=== PATIENT | male | born 1945 | race Caucasian/White ===

== ENCOUNTER → 2017-01-12 | Outpatient (CLI) | payer OTHER ==
[~2017-01-12] MED LIST: DILT-60 PO; LEVO75TA3 PO; MONT10TA4 PO; MULTTAB27 PO; OXYC-392 PO; TEST1GEL10 TOPICAL; VENTAER INH; ZOFR4TAB PO; ZOLP10TA3 PO
--- NOTE | 2017-01-13 11:20 | RADRPT ---
EXAM DATE/TIME: 01/13/2017 08:32 IR CONSULT: Patient is kindly referred for consideration of evaluation for hepatocellular carcinoma locoregional therapy. Patient reportedly has a history of hepatitis C and EtOH abuse and has completed antiviral t herapy in 2011. CT 01/03/2017 and MRI 01/05/2017 exams from [facility] are reviewed. These demonstr ate a large infiltrative mass in segment 8 and 6 of the liver with invasion of the right portal branc hes and a large nonocclusive tumor thrombus seen centrally in the right main portal vein. The main po rtal vein and left portal vein are patent. There is no evidence for significant extrahepatic involvem ent. This mass was previously biopsied with pathology demonstrating hepatocellular carcinoma. This is also consistent with the imaging findings. Mr. Mendez is a potential candidate for locoregional therapy. His performance status and liver function will be critical in developing an appropriate locoregional therapy option. Generally, Y90 embolizati on is the preferred first approach with patients who have portal vein invasion as it tends to be sign ificantly less embolic. Please note that patient has variant celiac anatomy. The left hepatic artery originates from the left gastric artery. There is complete replacement of the right hepatic artery from the SMA. Thank you for allowing interventional radiology to participate in the care of this patient. IMAGING STUDIES: ? ASSESSMENT: ? PLAN: ? TIME SPENT: Chele Griffin MD on January 13, 2017 at 10:38 Board Certified Radiologist. This report was verified electronically.
== END ==
LOC: HRAD 15:36
PROVIDERS: ATTEND Internal Medicine Hematology & Oncology
DX: C22.7 Other specified carcinomas of liver (principal)

== ENCOUNTER 2017-01-19 13:19 | Day surgery (SDC) | payer OTHER ==
[2017-01-19] MEDS ORDERED: MULTTAB27 PO (13:43)
[2017-01-19] MEDS ORDERED: MONT10TA4 PO (13:44)
[2017-01-19] MEDS ORDERED: LEVO75TA3 PO (13:44)
[2017-01-19] MEDS ORDERED: DILT-60 PO (13:45)
[2017-01-19] MEDS ORDERED: ZOLP10TA3 PO (13:45)
[2017-01-19] MEDS ORDERED: TEST1GEL10 TOPICAL (13:46)
[2017-01-19] MEDS ORDERED: VENTAER INH ×2 (13:47→13:48)
[2017-01-19] MEDS ORDERED: OXYC-392 PO (13:51)
[2017-01-19] MEDS ORDERED: ZOFR4TAB PO (13:51)
--- NOTE | 2017-01-19 16:18 | RADRPT ---
EXAM DATE/TIME: 01/19/2017 00:00 [facility] COMPARISON : INDICATIONS : consult for transarteriol chemo embolization OBJECTIVE: Temperature: 98.2 Heart Rate: 65 Blood Pressure: 152/90 Respiratory: 20 Oximetry: 95 PNEUMONIA VACCINE: HISTORY OF PRESENT ILLNESS: Mr. Kerr is a very pleasant 71-year-old male with a history of Hepatitis C and EtOH abuse was recentl y diagnosed with hepatocellular carcinoma. Patient completed antiviral therapy in 2011. CT and MRI ex amination performed in December demonstrated a large infiltrative mass in segments 6 and 8 of the liver w ith segmental right portal vein invasion and large nonocclusive tumor thrombus in the right main port al vein. This mass was biopsied with pathology demonstrating hepatocellular carcinoma. He currently h as an excellent functional status, ECOG 0. Review of recent labs demonstrate intact hepatic function (Tbili 0.6, Alb 4.0) with MELD-Na score of 10 PAST MEDICAL HISTORY : 1. htn 2. hep c 3. asthma 4. hypothiroidism PAST SURGICAL HISTORY : 1. turp 2. multiple hernia repairs SOCIAL HISTORY : Social alcohol use. Tobacco;former. ALLERGIES: 1. lisinopril MEDICATIONS: 1. mvi 1 tab q.d. 2. levothyroxine 75 mcg q.d. 3. montelutast 10 mg q.d. 4. dilitazem 120 mg q.d. 5. zolpridem 10 mg q.h.s. 6. [id number] cream q.d. 7. hydrocodone 5 mg prn 8. zofran 4 mg prn PHYSICAL EXAMINATION: CV: Regular rate and rhythm. Lungs: Clear to auscultation. Abdomen: Soft, nontender nondistended. IMAGING STUDIES: CT examination dated 01/03/2017 and MRI examination dated 01/05/[address] [facility] are reviewed. Infiltrative large mass in segments 6 and 8 of the liver with segmental right portal branch invasion and large nonocclusive thrombus centrally in the right main portal vein. The main portal vein and lef t portal vein are patent. No evidence for significant extra pathic involvement. ASSESSMENT: 71-year-old male with history of Hep C and EtOH abuse now with biopsy-proven large infiltrative hepat ocellular carcinoma in segments 6 and 8 of the liver with segmental portal vein involvement (main PV is patent). Patient has an excellent functional status, ECOG 0, and maintains normal hepatic function (Tbili 0.6, Alb 4.0) with MELD-Na score of 10. Therefore, he is an excellent Y90 locoregional therap y candidate since Y90 is significantly less embolic and tends to preserve hepatic vasculature for pot ential future MASOOD TACE. PLAN: Plan for Y90 mapping and lobar Y90 embolization pending insurance authorization. TIME SPENT: 30 minutes Chele Griffin MD on January 19, 2017 at 14:59 Board Certified Radiologist. This report was verified electronically.
== END 2017-01-19 14:30 | disposition home or self-care (01) ==
LOC: HROP 13:19 → HRIP 13:21 → HROP 14:30
PROVIDERS: ATTEND Internal Medicine Hematology & Oncology
DX: C22.0 Liver cell carcinoma (principal); I10 Essential (primary) hypertension; J45.909 Unspecified asthma, uncomplicated; E03.9 Hypothyroidism, unspecified; B19.20 Unspecified viral hepatitis C without hepatic coma; Z87.891 Personal history of nicotine dependence

== ENCOUNTER 2017-02-15 07:32 | Day surgery (SDC) | payer OTHER ==
[2017-02-15] VITALS (10 sets, daily range): BP systolic 150–195; BP diastolic 87–105; PULSE 61–68; RESP 16–20; TEMP 97.4–98; O2SAT 93–98
[~2017-02-15] VITALS: Ht 180.3 cm; Wt 87.0 kg
[2017-02-15] MEDS ORDERED: SODIUM CHLOR 0.9% 1000 ML INJ 1,000 ML IV SCH (08:15)
[2017-02-15] MEDS ORDERED: TRAM50TA PO (08:39)
[2017-02-15] MEDS ORDERED: MORP1TAB24 PO (08:39)
[2017-02-15] MEDS ORDERED: [UNRECOGNIZED DRUG - OTHER] (08:39)
[2017-02-15 08:52] LABS: AUTOMATED NEUTROPHIL # 3.9 TH/MM3 (1.8-7.7); BASOPHIL # 0.1 TH/MM3 (0-0.2); BASOPHIL % 1.2 % (0.0-2.0); EOSINOPHIL # 0.3 TH/MM3 (0-0.4); EOSINOPHIL % 5.7 % (0.0-4.0); HEMATOCRIT 43.8 % (39.0-51.0); HEMO FLAGS DIFF FINAL; MEAN CELL VOLUME 86.4 FL (80.0-100.0); MEAN CORPUSCULAR HEMOGLOBIN 29.5 PG (27.0-34.0); MEAN CORPUSCULAR HGB CONC 34.1 % (32.0-36.0); MONO % 12.3 % (0.0-8.0); NEUT % 64.8 % (16.0-70.0); PLATELET COUNT 262 TH/MM3 (150-450); RED BLOOD COUNT 5.07 MIL/MM3 (4.50-5.90); RED CELL DISTRIBUTION WIDTH 12.8 % (11.6-17.2); WHITE BLOOD COUNT 6.1 TH/MM3 (4.0-11.0)
[2017-02-15 09:02] LABS: APTT (PATIENT) 28.9 SEC (24.3-30.1); PROTHROMBIN TIME - PATIENT 11.4 SEC (9.8-11.6)
[2017-02-15 09:26] LABS: ANION GAP 9 MEQ/L (5-15); BICARBONATE 25.3 MEQ/L (21.0-32.0); BLOOD UREA NITROGEN 16 MG/DL (7-18); CHLORIDE 106 MEQ/L (98-107); GLOMERULAR FILTRATION RATE 56 ML/MIN (>89); SODIUM (NA) 140 MEQ/L (136-145)
[2017-02-15 09:35] LABS: ALT (GPT) 87 U/L (12-78); AST (GOT) 77 U/L (15-37)
[2017-02-15 09:37] LABS: ALKALINE PHOSPHATASE 157 U/L (45-117); TOTAL BILIRUBIN ADULT 1.1 MG/DL (0.2-1.0)
[2017-02-15] MEDS ORDERED: MIDAZOLAM HCL 5 MG/5 ML VIAL ONE (10:03)
[2017-02-15] MEDS ORDERED: fentaNYL CITRATE 250 MCG/5 ML AMP ONE (10:03)
[2017-02-15] MEDS ORDERED: ONDANSETRON HCL 4 MG/2 ML VIAL ONE (10:32)
[2017-02-15] MEDS ORDERED: VERAPAMIL HCL 5 MG/2 ML VIAL ONE (11:50)
[2017-02-15] MEDS ORDERED: HEPARIN SODIUM - IV 10,000 UNITS/10 ML VIAL ONE (11:50)
[2017-02-15] MEDS ORDERED: SODIUM CHLORIDE 0.9% INJ 10 ML ONE (11:51)
[2017-02-15] MEDS ORDERED: IOHEXOL 350 MG/ML 100 ML BTL (for RAD DIAG) OTHER ONE (12:34)
[2017-02-15] MEDS ORDERED: LORazepam 2 MG/ML VIAL ONE (12:43)
--- NOTE | 2017-02-15 14:55 | PD.RAD ---
Post Procedure Progress Note Pre Procedure Diagnosis: (1) HCC (hepatocellular carcinoma) Post Procedure Diagnosis: (1) HCC (hepatocellular carcinoma) Procedure Date: Feb 15, 2017 Supervising Radiologist: Chele Griffin Proceduralist/Assist: Michelle Robles, RT(R), Kay Zavala RT(R)() Anesthesia: Conscious Sedation Plan of Activity Patient to Unit: ROPU Patient Condition: Good Additional Comments: Y90 mapping. See PACS Report for procedural detail/treatment Chele Griffin MD Feb 15, 2017 14:55
--- NOTE | 2017-02-15 16:29 | RADRPT ---
EXAM DATE/TIME: 02/15/2017 11:44 COMPARISON: No previous studies available for comparison. INDICATIONS : Liver cell carcinoma. DOSE: 2.1 mCi Tc99m MAA Intraarterial IMAGING: SPECT/CT imaging with fusion was performed. RADIATION DOSE: 4.08 CTDIvol (mGy) MEDICAL HISTORY : Carcinoma, hepatocellular. Hepatitis C. SURGICAL HISTORY : Prostatectomy. Umbilical hernia repair. ENCOUNTER: Initial ACUITY: 1 day PAIN SCALE: 0/10 LOCATION: upper quadrant FINDINGS: Intra-arterial administration of technetium 99m MAA into replaced right hepatic artery arising from t he SMA and for performance of right mapping. There is diffuse uptake throughout the right lobe of the liver without evidence for extrahepatic activity. The lung shunt percent is calculated at 19.9% CONCLUSION: 1. No evidence for extrahepatic activity following injection of the right hepatic artery. 2. Lung shunt of 19.9%. Chele Griffin MD on February 15, 2017 at 15:05 Board Certified Radiologist. This report was verified electronically.
--- NOTE | 2017-02-18 11:27 | RADRPT ---
EXAM DATE/TIME: 02/15/2017 09:45 COMPARISON: No previous studies available for comparison. INDICATIONS : 71-year-old male with history of EtOH abuse and hepatitis C recently diagnosed with hepatocellular ca rcinoma. Patient completed chemotherapy in 2011. Imaging demonstrates large infiltrative mass in segm ent 6 and 8 of the liver with segmental right portal vein invasion and large nonocclusive tumor throm bus in the right main portal vein. ECOG 0, MELD-Na score of 10. Patient presents for yttrium-90 mappi ng. MEDICAL HISTORY : Prostate carcinoma Hep C Heavy alcohol consumption Heavy smoker in the past HTN Hypothyroidism COPD SURGICAL HISTORY : Hernia repair Prostate biopsy with transurethral resection of prostate carcinoma ENCOUNTER: Initial ACUITY: 1 month PAIN SCORE: 3/10 LOCATION: Back FLUORO TIME: 18.4 minutes IMAGE SERIES: ? ACCESS SITE: Left Radial artery SEDATION TIME: 90 minutes CONTRAST: 1.) 140 cc Omnipaque (iohexol) 350 MEDICATION(S): 1.) 5 mg midazolam (Versed) IV 2.) 250 mcg fentanyl (Sublimaze) IV 3.) 3,000 units Heparin IV 4.) 400 mcg Nitroglycerin IART 5.) 4 mg Verapamil IART 6.) 4 mg ondansetron (Zofran) IV DEVICE(S): 1.) Middle hepatic artery [id number] .018 Interlock embolic coil(s) PROCEDURES PERFORMED: 1. Ultrasound guided left radial artery access 2. Selective catheter placement in the celiac artery selective angiography 3. Subsequent catheter placement in the left gastric artery with subselective angiography 4. Subselective catheter placement and left hepatic artery arising from the left gastric artery with subselective angiography 5. Single coil embolization of middle hepatic artery 6. Selective catheterization and in the SMA was selected angiography 7. Subselective catheter placement in the right hepatic artery arising from the SMA with subselectiv e angiography 8. Intra-arterial administration of Technetium 99m-MAA in the replaced right hepatic artery 9. Administration of conscious sedation with real-time monitoring FINDINGS: Patient was placed supine in angiographic table. A patient passed about both first on the left side. Evaluation of the left radial artery demonstrated the artery to be patent. Single image was obtained and placed in PACS archive. Micropuncture needle was advanced into the left radial artery under direc t ultrasound guidance. This was subsequently exchanged for a short slim 5 Lithuanian sheath. 5 Lithuanian pos t catheter and Glidewire were advanced into the celiac artery. Angiography was performed. This confir med variant celiac anatomy with only a small branch supplying the liver arising from the common hepat ic artery. Catheter was then advanced into the common hepatic artery and angiography was repeated. Th is again confirmed a single middle hepatic artery with abnormal enhancement near the expected mass in segments 6 and 8. Therefore, decision was made to perform consolidative coil embolization. A negativ e microcatheter was advanced into the middle hepatic artery and angiography was performed. This again confirmed the findings. Next, the middle hepatic artery was embolized with a single 3 x 60 mm interl ock coil. No simple cyst angiography demonstrated well placed coil mass. Catheter was then reposition ed into the left gastric artery and angiography was performed. This confirmed the origin of the left hepatic artery from the left gastric artery. Catheter was advanced into the left hepatic artery and a ngiography was performed. This confirmed left hepatic artery without evidence for abnormal enhancemen t in the left lobe of the liver. Microcatheter was then removed. The angiographic catheter was reposi tioned in the SMA. SMA angiography confirmed replaced right hepatic artery arising from the SMA. Ther e is also extensive abnormal enhancement throughout the right lobe of the liver with early portal gerard ous shunting. Microcatheter was then positioned in the right hepatic artery and angiography was perfo rmed. This confined the findings. Therefore, a solution containing 2 mCi of technetium 99m MAA were s lowly injected into the replaced right hepatic artery for performance of shunting examination. Cathet ers were then removed. The radial artery sheath was removed and hemostasis obtained with a radial com pression device. CONCLUSION: 1. Variant celiac and SMA anatomy with origin of the left hepatic artery from the left gastric artery and replaced right hepatic artery from the SMA. 2. There is a middle hepatic artery arising from the common hepatic artery with questionable supply t o the infiltrative mass in segments 6 and 8. Therefore, consolidative coil embolization of the middle hepatic artery was performed. 3. Intra-arterial administration of Technetium 99m-MAA in the replaced right hepatic artery arising f rom the SMA. Chele Griffin MD on February 18, 2017 at 11:05 Board Certified Radiologist. This report was verified electronically.
== END 2017-02-15 16:20 | disposition home or self-care (01) ==
LOC: HROP 07:32 → HRIP 07:33 → HROP 16:20
PROVIDERS: ATTEND Internal Medicine
DX: C22.0 Liver cell carcinoma (principal); B19.20 Unspecified viral hepatitis C without hepatic coma; I10 Essential (primary) hypertension; J44.9 Chronic obstructive pulmonary disease, unspecified; E03.9 Hypothyroidism, unspecified; Z85.46 Personal history of malignant neoplasm of prostate; Z87.891 Personal history of nicotine dependence
CPT/HCPCS: 36245; 36247; 36248; 37242; 75726; 75774; 76937; 78205; 78399; 80053; 85025; 85610; 85730; 99152; 99153; A9540; C1769; C1887; C1894; J1644; J2060; J2250; J2405; J3010; Q9967

== ENCOUNTER 2017-03-01 07:14 | Observation (INO) | payer OTHER ==
[~2017-03-01] VITALS: Ht 171.4 cm; Wt 92.0 kg
[2017-03-01] VITALS (15 sets, daily range): BP systolic 149–189; BP diastolic 77–97; PULSE 65–86; RESP 14–18; TEMP 96.2–98.1; O2SAT 94–98
[~2017-03-01 07:14] MED LIST changes: +MORP1TAB24 PO; -OXYC-392 PO; +TRAM50TA PO; +[UNRECOGNIZED DRUG - OTHER]
[2017-03-01] MEDS ORDERED: SODIUM CHLOR 0.9% 1000 ML INJ 1,000 ML IV SCH ×3 (08:00→12:34)
[2017-03-01 08:11] LABS: AUTOMATED NEUTROPHIL # 4.1 TH/MM3 (1.8-7.7); BASOPHIL % 0.6 % (0.0-2.0); EOSINOPHIL # 0.4 TH/MM3 (0-0.4); EOSINOPHIL % 6.6 % (0.0-4.0); HEMATOCRIT 41.9 % (39.0-51.0); HEMO FLAGS DIFF FINAL; LYMPH % 17.4 % (9.0-44.0); LYMPHOCYTE # 1.1 TH/MM3 (1.0-4.8); MEAN CELL VOLUME 87.4 FL (80.0-100.0); MEAN CORPUSCULAR HEMOGLOBIN 29.2 PG (27.0-34.0); MEAN CORPUSCULAR HGB CONC 33.4 % (32.0-36.0); MONO % 13.2 % (0.0-8.0); NEUT % 62.2 % (16.0-70.0); PLATELET COUNT 176 TH/MM3 (150-450); RED CELL DISTRIBUTION WIDTH 13.4 % (11.6-17.2); WHITE BLOOD COUNT 6.6 TH/MM3 (4.0-11.0)
[2017-03-01 08:24] LABS: APTT (PATIENT) 26.4 SEC (24.3-30.1); PROTHROMBIN TIME - PATIENT 10.9 SEC (9.8-11.6)
[2017-03-01 08:36] LABS: ALKALINE PHOSPHATASE 155 U/L (45-117); ALT (GPT) 81 U/L (12-78); ANION GAP 9 MEQ/L (5-15); AST (GOT) 81 U/L (15-37); BICARBONATE 28.5 MEQ/L (21.0-32.0); BLOOD UREA NITROGEN 16 MG/DL (7-18); CHLORIDE 102 MEQ/L (98-107); GLOMERULAR FILTRATION RATE 41 ML/MIN (>89); SODIUM (NA) 139 MEQ/L (136-145); TOTAL BILIRUBIN ADULT 0.8 MG/DL (0.2-1.0)
[2017-03-01 08:37] LABS: POTASSIUM 4.7 MEQ/L (3.5-5.1)
[2017-03-01] MEDS ORDERED: IOHEXOL 350 MG/ML 10 ML VIAL (for RAD DIAG) IV ONE (08:48)
--- NOTE | 2017-03-01 09:23 | RADRPT ---
EXAM DATE/TIME: 03/01/2017 08:41 [facility] COMPARISON: Comparison to CT exam from [facility] 01/11/2017 INDICATIONS : Tumor, Y90 IV CONTRAST: 71 cc Omnipaque 350 (iohexol) IV ORAL CONTRAST: No oral contrast ingested. RADIATION DOSE: 11.33 CTDIvol (mGy) MEDICAL HISTORY : Hypertension. Chronic obstructive pulmonary disease. Hepatitis C.Liver cancer SURGICAL HISTORY : Hernia repair ENCOUNTER: Initial ACUITY: 1 day PAIN SCALE: 0/10 LOCATION: Abdomen TECHNIQUE: Volumetric scanning of the abdomen was performed. Using automated exposure control and adjustment of the mA and/or kV according to patient size, radiation dose was kept as low as reasonably achievable to obtain optimal diagnostic quality images. DICOM format image data is available electronically for review and comparison. FINDINGS: LOWER LUNGS: The visualized lower lungs are clear. LIVER: There has been mild interval progression of diffuse infiltrative mass involving segments 7, 6 and 5 w ith metastatic foci to segments 8 and new metastatic foci to segments 2 and 4. Continued invasion of the posterior right portal vein branches. Remaining portal vein branches and central main portal vein are patent. No significant pleural adenopathy. SPLEEN: Normal size without lesion. PANCREAS: Within normal limits. KIDNEYS: Normal in size and shape. There is no mass, stone, or hydronephrosis. ADRENAL GLANDS: Within normal limits. AORTA/RETROPERITONEAL: There is no aneurysm or lymphadenopathy. BOWEL/MESENTERY: The stomach and visualized small and large bowel demonstrate no abnormality. ABDOMINAL WALL: Prior abdominal wall hernia repair. MUSCULOSKELETAL: Within normal limits for patient age. CONCLUSION: 1. Interval progression of infiltrative hepatocellular carcinoma with now bilobar involvement, as abo ve. Stable tumor thrombus involving the posterior right portal vein branches. No evidence for extrahe patic disease. Chele Griffin MD on March 01, 2017 at 9:11 Board Certified Radiologist. This report was verified electronically.
[2017-03-01] MEDS ORDERED: MIDAZOLAM HCL 2 MG/2 ML VIAL ONE ×2 (09:32→10:33)
[2017-03-01] MEDS ORDERED: fentaNYL CITRATE 250 MCG/5 ML AMP ONE (09:33)
[2017-03-01] MEDS ORDERED: ceFAZolin 2 GM PREMIX 50 ML ONE (09:37)
[2017-03-01] MEDS ORDERED: ONDANSETRON HCL 4 MG/2 ML VIAL ONE ×2 (09:37→14:54)
[2017-03-01] MEDS ORDERED: VERAPAMIL HCL 5 MG/2 ML VIAL ONE ×2 (10:20→10:24)
[2017-03-01] MEDS ORDERED: HEPARIN SODIUM - IV 10,000 UNITS/10 ML VIAL ONE (10:33)
[2017-03-01] MEDS ORDERED: NITROGLYCERIN 1000 MCG/5 ML VIAL ONE (11:00)
--- NOTE | 2017-03-01 11:08 | HHI.HP ---
[facility] Service [facility] Primary Care Physician Rodney Galvan M.D. Admission Diagnosis Diagnoses: (1) HCC (hepatocellular carcinoma) Diagnosis: Principal Chief Complaint: Belly pain and liver cancer Travel History International Travel<30 Days: No Contact w/Intl Traveler <30 Da: No Traveled to Known Affected Are: No History of Present Illness 71-year-old white male being directly admitted from radiology for hepatocellular carcinoma, post Y 90 embolization of the right Hepatic arteries ordered by his oncologist Dr. Soto. Patient reports having diagnosis of hepatocellular carcinoma for the past 4-5 months, says that he has a regular Dr. 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 He reports having chronic abdominal pain due to his liver mass and takes chronic opiates. He ends up taking Zofran as well for chronic nausea. He reports having intermittent fevers, chills, and night sweats from time to time. He reports having constipation secondary due to his opiates, has to take laxatives. His most recent CT scan today now showed that he had by lobar involvement of his liver. The patient denies ever being told that he had any metastases anywhere else in his body. He underwent the procedure well today with no complications per radiology. The patient reports having an appetite and wanting to eat. The patient cannot remember the exact reasons for his remaining home medications, notably diltiazem and what appears to be COPD meds of Ventolin and montelukast. Last Impressions Liver Scan Nuclear Medicine 03/01/17 0903 Signed Impressions: Service Date/Time: Wednesday, March 01, 2017 12:22 - CONCLUSION: 1. Appropriate expected activity in the right hepatic lobe, No significant extra hepatic activity. Chele Griffin MD Abdomen CT 03/01/17 0000 Signed Impressions: Service Date/Time: Wednesday, March 01, 2017 08:41 - CONCLUSION: 1. Interval progression of infiltrative hepatocellular carcinoma with now bilobar involvement, as above. Stable tumor thrombus involving the posterior right portal vein branches. No evidence for extrahepatic disease. Chele Griffin MD Review of Systems Except as stated in HPI: all other systems reviewed are Neg Past Family Social History Past Medical History Hepatitis C, liver carcinoma, prostate carcinoma, hypertension, COPD, hypothyroidism Past Surgical History Hernia repair, liver biopsy, prostate biopsy, TURP Reported Medications Reported Meds & Active Scripts Active Reported [nexa] Tramadol (Tramadol HCl) 50 Mg Tab 50 Mg PO Q8H PRN Morphine ER (Morphine Sulfate) 15 Mg Tab 15 Mg PO BID Zofran (Ondansetron HCl) 4 Mg Tab 4 Mg PO Q8HR PRN Ventolin Hfa 18 GM Inh (Albuterol Sulfate) 90 Mcg/Act Aer 2 Puff INH Q4H PRN Testosterone Topical (Testosterone) 10 Mg/0.5 Gm Gel 10 Mg TOPICAL DAILY 10 mg/actuation Zolpidem (Zolpidem Tartrate) 10 Mg Tab 10 Mg PO HS PRN Diltiazem CD 24 HR 120 Mg Caper 120 Mg PO DAILY Montelukast (Montelukast Sodium) 10 Mg Tab 10 Mg PO HS Levothyroxine (Levothyroxine Sodium) 75 Mcg Tab 75 Mcg PO DAILY Multi-Day Vitamins (Multiple Vitamin) 1 Tab Tab 1 Tab PO DAILY Allergies: Coded Allergies: Lisinopril (Verified Allergy, Severe, swelling, 03/01/17) Family History Hypertension Social History 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 Denies any current tobacco use, says he does have a greater than 40 year tobacco use history. Also reports having a heavy drinking history that ended 8-9 years ago. Physical Exam Vital Signs Vital Signs Date Time Temp Pulse Resp B/P Pulse Ox O2 Delivery O2 Flow Rate FiO2 03/01/17 08:09 94 Room Air 03/01/17 07:29 98.0 86 18 149/79 94 Physical Exam VS: Reviewed, oxygenating well on room air, afebrile, normotensive GENERAL: Elderly white male, well-nourished, no acute distress SKIN: Warm and dry. Left hand with arterial insertion site intact, no bleeding or bruising noted. EYES: Pupils equal and round. No scleral icterus. No injection or drainage. ENT: No nasal bleeding or discharge. Mucous membranes pink and moist. CARDIOVASCULAR: Regular rate and rhythm. no murmurs RESPIRATORY: No accessory muscle use. Clear to auscultation. Breath sounds equal bilaterally. GASTROINTESTINAL: Abdomen soft, mild to moderately distended diffusely, mild diffuse tenderness to palpation, no focal masses palpated MUSCULOSKELETAL: Extremities without clubbing, cyanosis, or edema. No obvious deformities. grossly intact ROM with 5/5 strength in upper and lower extremities proximally NEUROLOGICAL: Awake and alert. No facial droop nor slurred speech noted. PSYCHIATRIC: Appropriate mood and affect; insight and judgment normal. Laboratory Laboratory Tests Test 03/01/17 07:45 White Blood Count 6.6 Red Blood Count 4.80 Hemoglobin 14.0 Hematocrit 41.9 Mean Corpuscular Volume 87.4 Mean Corpuscular Hemoglobin 29.2 Mean Corpuscular Hemoglobin 33.4 Concent Red Cell Distribution Width 13.4 Platelet Count 176 Mean Platelet Volume 8.3 Neutrophils (%) (Auto) 62.2 Lymphocytes (%) (Auto) 17.4 Monocytes (%) (Auto) 13.2 Eosinophils (%) (Auto) 6.6 Basophils (%) (Auto) 0.6 Neutrophils # (Auto) 4.1 Lymphocytes # (Auto) 1.1 Monocytes # (Auto) 0.9 Eosinophils # (Auto) 0.4 Basophils # (Auto) 0.0 CBC Comment DIFF FINAL Differential Comment Prothrombin Time 10.9 Prothromb Time International 1.0 Ratio Activated Partial 26.4 Thromboplast Time Sodium Level 139 Potassium Level 4.7 Chloride Level 102 Carbon Dioxide Level 28.5 Anion Gap 9 Blood Urea Nitrogen 16 Creatinine 1.67 Estimat Glomerular Filtration 41 Rate Random Glucose 84 Calcium Level 9.3 Total Bilirubin 0.8 Aspartate Amino Transf 81 (AST/SGOT) Alanine Aminotransferase 81 (ALT/SGPT) Alkaline Phosphatase 155 Total Protein 7.9 Albumin 3.8 Result Diagram: 03/01/17 0745 03/01/17 0745 Imaging Last Impressions Liver Scan Nuclear Medicine 03/01/17 0903 Signed Impressions: Service Date/Time: Wednesday, March 01, 2017 12:22 - CONCLUSION: 1. Appropriate expected activity in the right hepatic lobe, No significant extra hepatic activity. Chele Griffin MD Abdomen CT 03/01/17 0000 Signed Impressions: Service Date/Time: Wednesday, March 01, 2017 08:41 - CONCLUSION: 1. Interval progression of infiltrative hepatocellular carcinoma with now bilobar involvement, as above. Stable tumor thrombus involving the posterior right portal vein branches. No evidence for extrahepatic disease. Chele Griffin MD Assessment and Plan Problem List: (1) HCC (hepatocellular carcinoma) ICD Code: C22.0 Status: Acute Assessment and Plan 71-year-old white male directly admitted from radiology for Hepatocellular carcinoma Hepatocellular carcinoma now w/ bilobar involvement per imaging - post Y-90 hepatic artery embolization. No known metastases. Clinically stable. Received contrast, will administer fluids for flush out and daily Protonix to minimize risk for radiation gastritis. CMP in AM. If remains clinically stable, anticipate discharge tomorrow. Has reliable outpatient oncology follow-up w/ Dr. Soto. Continue home Zofran. Chronic abdominal pain - secondary to above, continue home pain medications, will start MiraLAX, Colace and peripheral opiate antagonist. Acute renal insufficiency - currently GFR 41. Could very well be chronic but will be elucidated by tomorrow morning. IVFs as above. insomnia - home zolpidem Hypothyroidism - continue Synthroid COPD - continue home Ventolin and montelukast testosterone deficiency - post-TURP per patient. Will continue home dose. Code Status full code Discussed Condition With patient Physician Certification 2 Midnight Certification Type: Continued Stay Order for Inpatient Services The services are ordered in accordance with Medicare regulations or non- Medicare payer requirements, as applicable. In the case of services not specified as inpatient-only, they are appropriately provided as inpatient services in accordance with the 2-midnight benchmark. Estimated LOS (days): 1 1-2 days is the estimated time the patient will need to remain in the hospital, assuming treatment plan goals are met and no additional complications. Post-Hospital Plan: Home Nadeem Mchugh MD Mar 01, 2017 11:08
--- NOTE | 2017-03-01 12:40 | PD.RAD ---
Post Procedure Progress Note Pre Procedure Diagnosis: (1) HCC (hepatocellular carcinoma) Post Procedure Diagnosis: (1) HCC (hepatocellular carcinoma) Procedure Date: Mar 01, 2017 Supervising Radiologist: Chele Griffin Proceduralist/Assist: Marilee Sullivan, RT(R)(), Matilda Roger RT(R)() Anesthesia: Conscious Sedation Plan of Activity Patient to Unit: ROPU Patient Condition: Good Additional Comments: Y90 embolization of the right Hepatic arteries. 91% of dose delivered. See PACS Report for procedural detail/treatment Chele Griffin MD Mar 01, 2017 12:40
[2017-03-01] MEDS ORDERED: HYDROmorphone HCL PF 1 MG/ML VIAL IV PUSH PRN (12:45)
[2017-03-01] MEDS ORDERED: IOHEXOL 350 MG/ML 50 ML BTL (for RAD DIAG) OTHER ONE (13:19)
[2017-03-01] MEDS ORDERED: ALBUTEROL SULFATE 90 MCG/ACT HFA 8 GM INHALER INH PRN (14:00)
[2017-03-01] MEDS ORDERED: ONDANSETRON ODT 4 MG TAB PO PRN (14:00)
--- NOTE | 2017-03-01 14:20 | RADRPT ---
EXAM DATE/TIME: 03/01/2017 12:22 [facility] COMPARISON: No previous studies available for comparison. PRIOR BONE SCANS: No correlative bone scan available for comparison. INDICATIONS : Liver carcinoma. DOSE: 44.6 mCi Yttrium-90 Intraarterial MEDICAL HISTORY : Hepatitis C. Metastatic, liver. SURGICAL HISTORY : Umbilical hernia repair. Prostatectomy. ENCOUNTER: Initial ACUITY: 1 day PAIN SCALE: 0/10 LOCATION: upper quadrant COMPARISON: No previous studies obtainable for comparison. FINDINGS: Activity is confined to the right lobe of the liver. No significant extrahepatic activity is demonstr ated. CONCLUSION: 1. Appropriate expected activity in the right hepatic lobe, No significant extra hepatic activity. Chele Griffin MD on March 01, 2017 at 14:17 Board Certified Radiologist. This report was verified electronically.
[2017-03-01] MEDS ORDERED: traMADol HCL 50 MG TAB PO PRN (15:15)
[2017-03-01] MEDS ORDERED: LABETALOL HCL 100 MG/20 ML VIAL ONE (17:13)
[2017-03-01] MEDS ORDERED: hydrALAZINE HCL 25 MG TAB PO PRN (17:30)
[2017-03-01] MEDS ORDERED: LABETALOL HCL 100 MG/20 ML VIAL IV ONE (17:30)
[2017-03-01] MEDS ORDERED: hydrALAZINE HCL 10 MG TAB PO PRN (18:00)
[2017-03-01] MEDS: METHYLNALTREXONE BROMIDE 12 MG/0.6 ML VIAL SQ SCH (19:55)
[2017-03-01] MEDS: POLYETHYLENE GLYCOL 17 GM PKG PO SCH (19:56)
[2017-03-01] MEDS: MONTELUKAST SODIUM 10 MG TAB PO SCH (20:15)
[2017-03-01] MEDS: ZOLPIDEM TARTRATE 10 MG TAB PO PRN (20:15)
[2017-03-01] MEDS: SODIUM CHLORIDE 0.9% FLUSH 10 ML FLUSH IV FLUSH SCH (20:19)
[2017-03-01] MEDS: SODIUM CHLOR 0.9% 1000 ML INJ 1,000 ML IV SCH (20:20)
[2017-03-01] MEDS: DOCUSATE SODIUM 100 MG CAP PO SCH (20:21)
[2017-03-01] MEDS: MORPHINE SULFATE 15 MG CONTROLLED RELEASE TAB PO SCH (21:00)
[2017-03-02] VITALS (8 sets, daily range): BP systolic 134–214; BP diastolic 76–106; PULSE 64–93; RESP 16–20; TEMP 96.4–98.2; O2SAT 93–98
[2017-03-02] MEDS: SODIUM CHLOR 0.9% 1000 ML INJ 1,000 ML IV SCH ×2 (05:35→18:55)
[2017-03-02] MEDS: LEVOTHYROXINE SODIUM 75 MCG TAB PO SCH (07:30)
[2017-03-02] MEDS: POLYETHYLENE GLYCOL 17 GM PKG PO SCH (08:49)
[2017-03-02] MEDS: DOCUSATE SODIUM 100 MG CAP PO SCH ×2 (08:56→20:16)
[2017-03-02] MEDS: PANTOPRAZOLE SOD 40 MG DELAYED RELEASE TAB PO SCH (08:56)
[2017-03-02] MEDS: MULTIVITAMIN TAB PO SCH (08:56)
[2017-03-02] MEDS: DILTIAZEM-CD 120 MG CAP ER PO SCH (08:56)
[2017-03-02] MEDS: METHYLNALTREXONE BROMIDE 12 MG/0.6 ML VIAL SQ SCH (09:00)
[2017-03-02] MEDS: MORPHINE SULFATE 15 MG CONTROLLED RELEASE TAB PO SCH ×2 (09:00→21:15)
[2017-03-02] MEDS ORDERED: TESTOSTERONE 10 MG TOPICAL SCH (09:00)
[2017-03-02] MEDS: SODIUM CHLORIDE 0.9% FLUSH 10 ML FLUSH IV FLUSH SCH ×2 (09:01→21:16)
[2017-03-02 09:16] LABS: ALKALINE PHOSPHATASE 136 U/L (45-117); ALT (GPT) 78 U/L (12-78); ANION GAP 10 MEQ/L (5-15); AST (GOT) 82 U/L (15-37); BICARBONATE 24.3 MEQ/L (21.0-32.0); BLOOD UREA NITROGEN 9 MG/DL (7-18); CHLORIDE 102 MEQ/L (98-107); GLOMERULAR FILTRATION RATE 73 ML/MIN (>89); POTASSIUM 3.9 MEQ/L (3.5-5.1); SODIUM (NA) 136 MEQ/L (136-145); TOTAL BILIRUBIN ADULT 1.4 MG/DL (0.2-1.0)
[2017-03-02] MEDS ORDERED: cloNIDine HCL 0.1 MG TAB PO ONE (09:30)
[2017-03-02] MEDS: CARVEDILOL 6.25 MG TAB PO SCH ×2 (11:07→21:15)
[2017-03-02] MEDS ORDERED: PROMETHAZINE INJ 25 MG/ML VIAL IM ONE (12:45)
[2017-03-02] MEDS ORDERED: ENALAPRILAT 1.25 MG/ML VIAL IV PUSH PRN (13:00)
--- NOTE | 2017-03-02 13:23 | HHI.PR ---
Subjective Remarks d/w nursing. pt's BP has been elevated substantially. Objective Vital Signs Date Time Temp Pulse Resp B/P Pulse Ox O2 Delivery O2 Flow Rate FiO2 03/02/17 12:14 96.4 74 20 210/98 98 03/02/17 12:00 97.0 80 18 214/101 96 192/98 03/02/17 10:00 18 03/02/17 08:00 98.2 80 18 197/106 96 03/02/17 05:00 98.2 93 16 134/88 94 03/02/17 00:00 98.0 78 16 152/81 97 03/01/17 20:15 Room Air 03/01/17 20:00 96.2 79 16 162/82 98 03/01/17 18:30 75 178/78 98 03/01/17 18:00 74 14 182/88 98 03/01/17 17:30 66 16 183/91 96 03/01/17 17:00 68 16 185/89 96 03/01/17 16:30 68 16 181/91 96 03/01/17 15:45 68 16 185/88 96 03/01/17 15:15 68 16 160/77 96 03/01/17 15:00 66 16 183/91 96 03/01/17 14:45 68 16 183/93 96 03/01/17 14:30 66 16 169/89 96 03/01/17 14:15 70 16 189/97 96 03/01/17 14:00 65 16 186/87 95 03/01/17 13:45 98.1 65 16 169/84 95 I/O 03/01/17 03/01/17 03/01/17 03/02/17 03/02/17 03/02/17 06:59 14:59 22:59 06:59 14:59 22:59 Intake Total 900 ml Output Total 700 ml 1350 ml 800 ml Balance -700 ml -1350 ml 100 ml Intake Oral 120 ml IV Total 780 ml Output Urine Total 700 ml 1350 ml 800 ml Result Diagram: 03/01/17 0745 03/02/17 0758 Imaging Last Impressions Liver Scan Nuclear Medicine 03/01/17 0903 Signed Impressions: Service Date/Time: Wednesday, March 01, 2017 12:22 - CONCLUSION: 1. Appropriate expected activity in the right hepatic lobe, No significant extra hepatic activity. Chele Bozorgmanesh, MD Abdomen CT 03/01/17 0000 Signed Impressions: Service Date/Time: Wednesday, March 01, 2017 08:41 - CONCLUSION: 1. Interval progression of infiltrative hepatocellular carcinoma with now bilobar involvement, as above. Stable tumor thrombus involving the posterior right portal vein branches. No evidence for extrahepatic disease. Chele Griffin MD Other Results Laboratory Tests Test 03/02/17 07:58 Sodium Level 136 MEQ/L (136-145) Potassium Level 3.9 MEQ/L (3.5-5.1) Chloride Level 102 MEQ/L (98-107) Carbon Dioxide Level 24.3 MEQ/L (21.0-32.0) Anion Gap 10 MEQ/L (5-15) Blood Urea Nitrogen 9 MG/DL (7-18) Creatinine 1.01 MG/DL (0.60-1.30) Estimat Glomerular Filtration 73 ML/MIN (>89) Rate Random Glucose 101 MG/DL (74-106) Calcium Level 9.1 MG/DL (8.5-10.1) Total Bilirubin 1.4 MG/DL (0.2-1.0) Aspartate Amino Transf 82 U/L (15-37) (AST/SGOT) Alanine Aminotransferase 78 U/L (12-78) (ALT/SGPT) Alkaline Phosphatase 136 U/L (45-117) Total Protein 7.0 GM/DL (6.4-8.2) Albumin 3.3 GM/DL (3.4-5.0) Objective Remarks GENERAL: Patient appears to be mild to moderate distress secondary to the pain and recent vomiting EYES: No scleral icterus. No injection or drainage. CARDIOVASCULAR: Regular rate and rhythm without murmurs, gallops, or rubs. RESPIRATORY: Breath sounds equal bilaterally. No accessory muscle use. GASTROINTESTINAL: Abdomen soft, mild diffuse abdominal distention, mild to moderate tenderness to palpation diffusely MUSCULOSKELETAL: No cyanosis, or edema. A/P Problem List: (1) HCC (hepatocellular carcinoma) ICD Code: C22.0 (2) Intractable nausea and vomiting ICD Code: R11.2 (3) Severe hypertension ICD Code: I10 Assessment and Plan 71-year-old white male who was admitted for hepatocellular carcinoma, requiring treatment with Y 90 embolization. Hepatocellular carcinoma - by lobar infiltration along with portal vein invasion , oncologist and Dr. Magaña. Tolerated procedure well yesterday. Nausea/vomiting - worsened compared to baseline, not responding to home Zofran, adding on Phenergan. Patient is not hypotensive so I do not suspect any intra- abdominal bleeding is occurring. CMP to be done tomorrow morning to monitor likely chronic transaminitis. Continue IV fluids and by mouth diet as tolerated. Hypertensive urgency - mild improvement with labetalol given yesterday, still refractory to hydralazine, if remains elevated by next check will consider transferring to alternative floor where IV antihypertensives can be pushed Renal insufficiency - likely was acute in nature as it responded well to fluids. Discussed case with interventional radiology, patient's overall condition is requiring for him to stay overnight mainly with his intractable nausea vomiting and his severe hypertension. Nadeem Mchugh MD Mar 02, 2017 13:23
[2017-03-02] MEDS ORDERED: PROMETHAZINE INJ 25 MG/ML VIAL IM PRN (19:30)
[2017-03-02] MEDS: ZOLPIDEM TARTRATE 10 MG TAB PO PRN (21:14)
[2017-03-02] MEDS: MONTELUKAST SODIUM 10 MG TAB PO SCH (21:14)
[2017-03-02] MEDS: LOSARTAN 25 MG TAB PO SCH (21:20)
[2017-03-03 01:04] VITALS: BP 132/86; PULSE 74; RESP 18; TEMP 98; O2SAT 96
[2017-03-03 04:46] VITALS: BP 160/93; PULSE 69; RESP 18; TEMP 98.1; O2SAT 95
[2017-03-03] MEDS: LEVOTHYROXINE SODIUM 75 MCG TAB PO SCH (06:43)
[2017-03-03 08:00] VITALS: BP 116/69; PULSE 71; RESP 18; TEMP 96.3; O2SAT 96
[2017-03-03] MEDS ORDERED: PROMETHAZINE HCL 25 MG TAB PO PRN (08:45)
[2017-03-03] MEDS: SODIUM CHLORIDE 0.9% FLUSH 10 ML FLUSH IV FLUSH SCH (09:00)
[2017-03-03] MEDS: DOCUSATE SODIUM 100 MG CAP PO SCH (09:00)
[2017-03-03] MEDS: POLYETHYLENE GLYCOL 17 GM PKG PO SCH (09:00)
[2017-03-03] MEDS: PANTOPRAZOLE SOD 40 MG DELAYED RELEASE TAB PO SCH (09:00)
[2017-03-03] MEDS: METHYLNALTREXONE BROMIDE 12 MG/0.6 ML VIAL SQ SCH (09:00)
[2017-03-03] MEDS: DILTIAZEM-CD 120 MG CAP ER PO SCH (09:25)
[2017-03-03] MEDS: MULTIVITAMIN TAB PO SCH (09:26)
[2017-03-03] MEDS: MORPHINE SULFATE 15 MG CONTROLLED RELEASE TAB PO SCH (09:26)
[2017-03-03] MEDS: LOSARTAN 25 MG TAB PO SCH (09:26)
[2017-03-03] MEDS: CARVEDILOL 6.25 MG TAB PO SCH (09:26)
[2017-03-03 12:00] VITALS: BP 139/74; PULSE 79; RESP 18; TEMP 96.7; O2SAT 97
[2017-03-03 14:24] LABS: BASOPHIL % 0.4 % (0.0-2.0); EOSINOPHIL # 0.6 TH/MM3 (0-0.4); EOSINOPHIL % 9.2 % (0.0-4.0); HEMATOCRIT 41.3 % (39.0-51.0); HEMO FLAGS DIFF FINAL; LYMPH % 12.1 % (9.0-44.0); LYMPHOCYTE # 0.7 TH/MM3 (1.0-4.8); MEAN CELL VOLUME 86.3 FL (80.0-100.0); MEAN CORPUSCULAR HEMOGLOBIN 29.7 PG (27.0-34.0); MEAN CORPUSCULAR HGB CONC 34.4 % (32.0-36.0); MONO % 12.5 % (0.0-8.0); NEUT % 65.8 % (16.0-70.0); PLATELET COUNT 174 TH/MM3 (150-450); RED BLOOD COUNT 4.79 MIL/MM3 (4.50-5.90); RED CELL DISTRIBUTION WIDTH 13.6 % (11.6-17.2); WHITE BLOOD COUNT 6.1 TH/MM3 (4.0-11.0)
--- NOTE | 2017-03-03 14:48 | HHI.DCPOC ---
Discharge Care Plan Additional Problems nausea and vomiting, liver cancer, elevated blood pressure Goals to Promote Your Health * To prevent worsening of your condition and complications * To maintain your health at the optimal level Directions to Meet Your Goals Take your medications as prescribed Follow your dietary instruction Follow activity as directed Keep your appointments as scheduled Take your immunizations and boosters as scheduled If your symptoms worsen call your PCP, if no PCP go to Urgent Care Center or Emergency Room Smoking is Dangerous to Your Health. Avoid second hand smoke Call the 24-hour hour crisis hotline for domestic abuse at Nadeem Mchugh MD Mar 03, 2017 14:48
[2017-03-03] MEDS ORDERED: CARV6.25 PO (14:50)
[2017-03-03] MEDS ORDERED: PROM25TA10 PO (14:50)
[2017-03-03] MEDS ORDERED: PANT40TA3 PO (14:50)
[2017-03-03 14:56] LABS: ALT (GPT) 75 U/L (12-78); ANION GAP 12 MEQ/L (5-15); AST (GOT) 67 U/L (15-37); BICARBONATE 23.1 MEQ/L (21.0-32.0); BLOOD UREA NITROGEN 12 MG/DL (7-18); CHLORIDE 104 MEQ/L (98-107); GLOMERULAR FILTRATION RATE 47 ML/MIN (>89); POTASSIUM 3.9 MEQ/L (3.5-5.1); SODIUM (NA) 139 MEQ/L (136-145)
[2017-03-03 14:58] LABS: ALKALINE PHOSPHATASE 139 U/L (45-117); TOTAL BILIRUBIN ADULT 0.9 MG/DL (0.2-1.0)
--- NOTE | 2017-03-03 18:33 | HHI.DS ---
Discharge Summary Admission Date Mar 01, 2017 at 19:30 Discharge Date: Mar 03, 2017 Admitting Diagnosis Hepatocellular carcinoma (1) HCC (hepatocellular carcinoma) ICD Code: C22.0 Diagnosis: Principal Procedures Y-90 embolization of hepatic artery Brief History - From Admission 71-year-old white male being directly admitted from radiology for hepatocellular carcinoma, post Y 90 embolization of the right Hepatic arteries ordered by his oncologist Dr. Soto. Patient reports having diagnosis of hepatocellular carcinoma for the past 4-5 months, says that he has a regular Dr. lupe Tristan but also has a unit secy and a oncologist the names of who he cannot remember. He reports having chronic abdominal pain due to his liver mass and takes chronic opiates. He ends up taking Zofran as well for chronic nausea. He reports having intermittent fevers, chills, and night sweats from time to time. He reports having constipation secondary due to his opiates, has to take laxatives. His most recent CT scan today now showed that he had by lobar involvement of his liver. The patient denies ever being told that he had any metastases anywhere else in his body. He underwent the procedure well today with no complications per radiology. The patient reports having an appetite and wanting to eat. The patient cannot remember the exact reasons for his remaining home medications, notably diltiazem and what appears to be COPD meds of Ventolin and montelukast. Last Impressions Liver Scan Nuclear Medicine 03/01/17 0903 Signed Impressions: Service Date/Time: Wednesday, March 01, 2017 12:22 - CONCLUSION: 1. Appropriate expected activity in the right hepatic lobe, No significant extra hepatic activity. Chele Griffin MD Abdomen CT 03/01/17 0000 Signed Impressions: Service Date/Time: Wednesday, March 01, 2017 08:41 - CONCLUSION: 1. Interval progression of infiltrative hepatocellular carcinoma with now bilobar involvement, as above. Stable tumor thrombus involving the posterior right portal vein branches. No evidence for extrahepatic disease. Chele Griffin MD CBC/BMP: 03/03/17 1403 03/03/17 1403 Significant Findings Laboratory Tests Test 03/01/17 03/02/17 03/03/17 07:45 07:58 14:03 Monocytes (%) (Auto) 13.2 % 12.5 % (0.0-8.0) (0.0-8.0) Eosinophils (%) (Auto) 6.6 % (0.0-4.0) 9.2 % (0.0-4.0) Creatinine 1.67 MG/DL 1.49 MG/DL (0.60-1.30) (0.60-1.30) Estimat Glomerular Filtration 41 ML/MIN (>89) 73 ML/MIN (>89) 47 ML/MIN (>89) Rate Aspartate Amino Transf 81 U/L (15-37) 82 U/L (15-37) 67 U/L (15-37) (AST/SGOT) Alanine Aminotransferase 81 U/L (12-78) (ALT/SGPT) Alkaline Phosphatase 155 U/L 136 U/L 139 U/L (45-117) (45-117) (45-117) Total Bilirubin 1.4 MG/DL (0.2-1.0) Albumin 3.3 GM/DL (3.4-5.0) Lymphocytes # (Auto) 0.7 TH/MM3 (1.0-4.8) Eosinophils # (Auto) 0.6 TH/MM3 (0-0.4) Random Glucose 138 MG/DL (74-106) PE at Discharge GENERAL: Resting comfortably, no acute distress EYES: No scleral icterus. No injection or drainage. CARDIOVASCULAR: Regular rate and rhythm without murmurs, gallops, or rubs. RESPIRATORY: Breath sounds equal bilaterally. No accessory muscle use. GASTROINTESTINAL: Abdomen soft, mildly distended, mild diffuse tenderness palpation MUSCULOSKELETAL: No cyanosis, or edema. Hospital Course Patient was admitted for hepatocellular carcinoma, treated with Y 90 embolization of hepatic arteries. Patient experienced substantial nausea and vomiting on first day of stay and had substantially elevated blood pressures likely as result. Over the next 24 hours his symptoms improved drastically with antiemetics and aggressive stepping up of blood pressure medications. Patient tolerated by mouth intake well and felt good to go home. Patient had met maximum benefit from hospitalization and was clinically stable for discharge. Pt Condition on Discharge: Stable Discharge Disposition: Discharge Home Discharge Time: > 30 minutes Discharge Instructions DIET: Follow Instructions for: Heart Healthy Diet Activities you can perform: Regular-No Restrictions Follow up Referrals: Oncology - 2 Weeks PCP Follow-up - 1 Week New Medications: Carvedilol (Coreg) 6.25 Mg Tab 6.25 MG PO Q12HR Blood Pressure Management #60 TAB Pantoprazole (Pantoprazole) 40 Mg Tab 40 MG PO DAILY Reflux #30 TAB Promethazine (Phenergan) 25 Mg Tablet 25 MG PO Q6H PRN nausea #30 TAB Continued Medications: Albuterol 18 GM Inh (Ventolin Hfa 18 GM Inh) 90 Mcg/Act Aer 2 PUFF INH Q4H PRN SHORTNESS OF BREATH #1 Ref 0 INHALER Diltiazem CD 24 HR (Diltiazem CD 24 HR) 120 Mg Caper 120 MG PO DAILY #30 Ref 0 CAP Levothyroxine (Levothyroxine) 75 Mcg Tab 75 MCG PO DAILY Thyroid #30 Ref 0 TAB Montelukast (Montelukast) 10 Mg Tab 10 MG PO HS #30 Ref 0 TAB Morphine ER (Morphine ER) 15 Mg Tab 15 MG PO BID Pain Management Ref 0 TAB Multiple Vitamin (Multi-Day Vitamins) 1 Tab Tab 1 TAB PO DAILY Ondansetron (Zofran) 4 Mg Tab 4 MG PO Q8HR PRN NAUSEA OR VOMITING Ref 0 TAB Testosterone Topical (Testosterone Topical) 10 Mg/0.5 Gm Gel 10 MG TOPICAL DAILY 10 mg/actuation Hormone Replacement #60 Ref 0 GM Tramadol (Tramadol) 50 Mg Tab 50 MG PO Q8H PRN PAIN Ref 0 TAB Zolpidem (Zolpidem) 10 Mg Tab 10 MG PO HS PRN INSOMNIA Ref 0 TAB ([nexa]) Nadeem Mchugh MD Mar 03, 2017 18:33
--- NOTE | 2017-03-13 08:23 | RADRPT ---
EXAM DATE/TIME: 03/01/2017 09:01 COMPARISON: ANGIOGRAM, HEPATIC ARTERY, March 01, 2017, 0:00. INDICATIONS : 71-year-old male with history of hepatis C. and hepatocellular carcinoma. Patient presents for Y90 em bolization. MEDICAL HISTORY : 1.Hepatitis C 2.Liver mass 3.Prostate cancer 4.HTN 5.Hypothroidism 6.COPD SURGICAL HISTORY : 1.Hernia repair 2.Prostate biopsy with transurethral resection of prostate carcinoma. ENCOUNTER: Subsequent ACUITY: > 1 year PAIN SCORE: 0/10 FLUORO TIME: 7.15 minutes IMAGE SERIES: 2 ACCESS SITE: Right Radial artery SEDATION TIME: 105 minutes CONTRAST: 1.) 30 cc Omnipaque (iohexol) 350 MEDICATION(S): 1.) 5 mg midazolam (Versed) IV 2.) 20 mcg fentanyl (Sublimaze) IV DEVICE(S): 1.) Y-90 SirSpheres PROCEDURES PERFORMED: 1. Conscious sedation 2. Ultrasound-guided left radial artery access 2. Selective catheter placement in the replaced right hepatic artery arising from the superior mesen teric artery 3. Y90 Embolization of the right hepatic arteries DISCUSSION: Monitored moderate conscious sedation was provided for this procedure with continued monitoring of pa tient consciousness and physiologic status provided by interventional radiology nurse throughout the procedure and documented. Patient was placed supine on the angiographic table. Ultrasound evaluation of the left radial artery demonstrated the artery to be patent. Single image was obtained and placed in PACS archive. Micropuncture needle was advanced into the left radial artery under direct ultrasound guidance and granger bsequently exchanged for a slim 5 Cambodian sheath. The 4 Cambodian Amalia catheter was then advanced into t he SMA and subsequently into the origin of the replaced right hepatic artery. Angiography was perform ed confirming position as well as continued extensive abnormal enhancement throughout the right lobe of the liver. Microcatheter was then advanced into the distal main right hepatic artery and a small h and injection performed to confirm position. The SIR-spheres acrylic delivery box (V-vial) and delivery set were prepped in standard fashion. The labels on the tubing and needles corresponding to lead tank mechanic's designations. The dose of SIR-sphere s to be delivered was determined by taking into account the patient's body surface area, tumor burden , liver function test, tumor burden, performance status, and lung shunting. Next, multiple small aliq uots of SIR-spheres were delivered intra-arterially to the hepatic masses with close fluoroscopic mon itoring to ensure forward flow in the vessel during the administration of the microspheres. Followup angiogram demonstrated persistent forward flow. Next, the microcatheter was withdrawn into the angiographic catheter, which was then removed from the sheath, and catheter tip grasped with multiple layers of sterile gauze. The angiographic catheter, m icrocatheter, V- vial, and all the tubing and needles associated with the delivery set were placed in to a container provided by radiation safety. Hemostasis was then obtained by placement of a radial compression device. Patient tolerated the proce dure well. FINDINGS: There was successful delivery of the radioactive microspheres to the hepatic artery. The microcathete r was positioned in the hepatic artery during the delivery of the microspheres. Throughout the proced ure, antegrade flow is maintained. No reflux was demonstrated fluoroscopically. Visually, entire dose within the V-vial was delivered to the patient. No leaks or spills of the radioactive material where identified during or after the procedure. CONCLUSION: 1. Technically successful Y-90 radioembolization of the right hepatic arteries, as above. Chele Griffin MD on March 13, 2017 at 7:58 Board Certified Radiologist. This report was verified electronically.
== END 2017-03-03 15:53 | disposition home or self-care (01) ==
LOC: HROP 07:14 → HRIP 07:17 → HROP 19:29 → HOCB 19:30
PROVIDERS: ADMIT Hospitalist; ATTEND Hospitalist
DX: C22.0 Liver cell carcinoma (principal); I16.0 Hypertensive urgency; N28.9 Disorder of kidney and ureter, unspecified; J44.9 Chronic obstructive pulmonary disease, unspecified; I10 Essential (primary) hypertension; E03.9 Hypothyroidism, unspecified; Z85.46 Personal history of malignant neoplasm of prostate; E29.1 Testicular hypofunction; B19.20 Unspecified viral hepatitis C without hepatic coma; G89.29 Other chronic pain; R10.9 Unspecified abdominal pain; G47.00 Insomnia, unspecified; Z79.891 Long term (current) use of opiate analgesic; Z79.899 Other long term (current) drug therapy
CPT/HCPCS: 36247; 37243; 74160; 75726; 78201; 79445; 80053; 85025; 85610; 85730; 99152; 99153; C1769; C1887; C1894; C2616; G0378; J0690; J1170; J1644; J2250; J2405; J2550; J3010; J7030; Q9967; A9503

== ENCOUNTER 2017-03-08 13:17 | Day surgery (SDC) | payer OTHER ==
[~2017-03-08 13:17] MED LIST changes: +CARV6.25 PO; +PANT40TA3 PO; +PROM25TA10 PO
--- NOTE | 2017-03-10 17:13 | RADRPT ---
EXAM DATE/TIME: 03/08/2017 13:30 [facility] COMPARISON : INDICATIONS : FO;;OW UP VISIT POST "y 90 " isotop injection OBJECTIVE: Temperature: 97.5 Heart Rate: 68 Blood Pressure: 151/79 Respiratory: 16 Oximetry: 97 HISTORY OF PRESENT ILLNESS: Hepatic CA with interval Y-90 embolization PAST MEDICAL HISTORY : HEPATIC CA SUBJECTIVE: The patient states that he feels very good post embolization. He feels better each day. Inquired abou t the second embolization to the left lobe of the liver. Was very grateful for the treatment he recei linda and was extremely complementary of Dr. Prado PHYSICAL EXAMINATION: The patient was in no acute distress. IMAGING STUDIES: Prior CT scan of embolization images were reviewed. ASSESSMENT: Patient doing quite well post Y-90 embolization. No ongoing issues PLAN: Patient will be scheduled for followup embolization with Dr. Prado TIME SPENT: 45 Benji Cardoza MD on March 10, 2017 at 17:07 Board Certified Radiologist. This report was verified electronically.
== END 2017-03-08 14:30 | disposition home or self-care (01) ==
LOC: HROP 13:17 → HRIP 13:20 → HROP 14:30
PROVIDERS: ATTEND Radiology Diagnostic Radiology
DX: C22.9 Malignant neoplasm of liver, not specified as primary or secondary (principal)

== ENCOUNTER 2017-03-22 07:23 | Observation (INO) | payer OTHER ==
[~2017-03-22] VITALS: Ht 172.7 cm; Wt 90.4 kg
[2017-03-22] VITALS (11 sets, daily range): BP systolic 136–158; BP diastolic 60–86; PULSE 67–80; RESP 16–20; TEMP 96.9–97.8; O2SAT 93–98
[2017-03-22] MEDS ORDERED: IOHEXOL 350 MG/ML 50 ML BTL (for RAD DIAG) ONE (07:24)
[2017-03-22] MEDS ORDERED: DEXAMETHASONE SOD PHOS 20 MG/5 ML VIAL IV ONE (08:00)
[2017-03-22] MEDS ORDERED: ceFAZolin 2 GM PREMIX 50 ML IV ONE (08:00)
[2017-03-22] MEDS ORDERED: ONDANSETRON HCL 4 MG/2 ML VIAL IV PUSH ONE (08:00)
[2017-03-22 08:09] LABS: AUTOMATED NEUTROPHIL # 3.2 TH/MM3 (1.8-7.7); BASOPHIL % 0.3 % (0.0-2.0); EOSINOPHIL # 0.6 TH/MM3 (0-0.4); EOSINOPHIL % 11.4 % (0.0-4.0); HEMATOCRIT 40.4 % (39.0-51.0); HEMO FLAGS DIFF FINAL; LYMPH % 9.7 % (9.0-44.0); LYMPHOCYTE # 0.5 TH/MM3 (1.0-4.8); MEAN CELL VOLUME 87.9 FL (80.0-100.0); MEAN CORPUSCULAR HEMOGLOBIN 29.3 PG (27.0-34.0); MEAN CORPUSCULAR HGB CONC 33.3 % (32.0-36.0); MONO % 17.1 % (0.0-8.0); NEUT % 61.5 % (16.0-70.0); PLATELET COUNT 161 TH/MM3 (150-450); RED BLOOD COUNT 4.59 MIL/MM3 (4.50-5.90); RED CELL DISTRIBUTION WIDTH 13.6 % (11.6-17.2); WHITE BLOOD COUNT 5.2 TH/MM3 (4.0-11.0)
[2017-03-22] MEDS ORDERED: SODIUM BICARBONATE 154 MEQ/1000 ML NS IV SCH ×2 (08:15)
[2017-03-22] MEDS ORDERED: SODIUM CHLORIDE 0.9% FLUSH 10 ML FLUSH IV FLUSH PRN ×3 (08:15→12:45)
[2017-03-22 08:19] LABS: APTT (PATIENT) 23.7 SEC (24.3-30.1); PROTHROMBIN TIME - PATIENT 10.8 SEC (9.8-11.6)
[2017-03-22 08:38] LABS: BICARBONATE 28.7 MEQ/L (21.0-32.0); POTASSIUM 4.3 MEQ/L (3.5-5.1)
[2017-03-22] MEDS ORDERED: fentaNYL CITRATE 250 MCG/5 ML AMP ONE (09:41)
[2017-03-22] MEDS ORDERED: MIDAZOLAM HCL 2 MG/2 ML VIAL ONE ×3 (09:41→11:08)
[2017-03-22] MEDS ORDERED: NITROGLYCERIN 1000 MCG/5 ML VIAL ONE (10:00)
[2017-03-22] MEDS ORDERED: VERAPAMIL HCL 5 MG/2 ML VIAL ONE (12:04)
[2017-03-22] MEDS ORDERED: HEPARIN SODIUM - IV 10,000 UNITS/10 ML VIAL ONE (12:04)
[2017-03-22] MEDS ORDERED: PROMETHAZINE HCL 25 MG TAB PO PRN (12:45)
[2017-03-22] MEDS ORDERED: NALOXONE HCL 0.4 MG/ML AMP IV PRN (12:45)
[2017-03-22] MEDS ORDERED: ACETAMINOPHEN 325 MG TAB PO PRN (12:45)
[2017-03-22] MEDS ORDERED: ALBUTEROL SULFATE 90 MCG/ACT HFA 8 GM INHALER INH PRN (12:45)
[2017-03-22] MEDS ORDERED: ZOLPIDEM TARTRATE 10 MG TAB PO PRN (12:45)
--- NOTE | 2017-03-22 13:06 | PD.RAD ---
Post CT Procedure Prog Note Pre Procedure Diagnosis: (1) HCC (hepatocellular carcinoma) Post Procedure Diagnosis: (1) HCC (hepatocellular carcinoma) Procedure Date: Mar 22, 2017 Supervising Radiologist: Chele Griffin Estimated blood loss: <5 ml Plan of Activity Patient to Unit: ROPU Patient Condition: Good Additional Comments: Left radial puncture. Left Hepatic artery Y90 embolization with nearly 100% dose delivered See PACS Report for procedural detail/treatment Chele Griffin MD Mar 22, 2017 13:06
[2017-03-22] MEDS ORDERED: ONDANSETRON ODT 4 MG TAB PO PRN (13:30)
--- NOTE | 2017-03-22 14:02 | RADRPT ---
EXAM DATE/TIME: 03/22/2017 10:04 COMPARISON: TRANSCATH, IV OCCL HEPATIC Y90, March 01, 2017, 9:01. INDICATIONS : Patient with history of hepatocellular carcinoma in need of second Y-90 embolization treatment. MEDICAL HISTORY : Hepatitis C, Liver carcinoma, Prostate carcinoma, HTN, COPD, Hypothyroidism SURGICAL HISTORY : Liver biopsy, Prostate biopsy, TURP, Right hepatic Y-90 embolization ENCOUNTER: Subsequent ACUITY: 4-6 months PAIN SCORE: 0/10 FLUORO TIME: 9.7 minutes IMAGE SERIES: 7 ACCESS SITE: Left Radial artery SEDATION TIME: 60 minutes CONTRAST: 1.) 38 cc Omnipaque (iohexol) 350 MEDICATION(S): 1.) 5 mg midazolam (Versed) IV 2.) 250 mcg fentanyl (Sublimaze) IV DEVICE(S): 1.) Right gastric artery Tornado [id number] embolic coil(s) 2.) Left hepatic artery Y-90 SirSpheres 3.) Left radial artery 24CM Radial band PROCEDURES PERFORMED: 1. conscious sedation 2. Ultrasound-guided left radial artery access 3. Selective catheter placement in the celiac artery with celiac angiography 4. Selective catheter placement in the left gastric artery with selective angiography 5. Coil embolization of small short gastric collateral branch arising from the origin of the left hep atic artery 6. Y90 Embolization of the left hepatic arteries DISCUSSION: Monitored moderate conscious sedation was provided for this procedure with continued monitoring of pa tient consciousness and physiologic status provided by interventional radiology nurse throughout the procedure and documented. Patient was placed supine on the angiographic table. Ultrasound evaluation of the left radial artery demonstrated the artery to be patent. Single image was obtained and placed in PACS archive. Micropunc ture needle was advanced into the left radial artery under direct ultrasound guidance and subsequentl y exchanged for a slim 5 B[place]udian sheath. The 4 [place]udian Amalia catheter was then advanced into the celiac artery and angiography was performed. This confirmed variant celiac anatomy with origin of the left hepatic artery from the left gastric artery. Microcatheter was then advanced into the origin of the l eft hepatic artery and angiography was repeated. This demonstrated a very small branch supplying the gastroesophageal region. Microcatheter was advanced into this branch and angiography was repeated con firming this finding. Therefore, this branch was embolized with a single 2 x 3 mm coil. Catheter was then advanced more distally into the left hepatic artery and angiography was performed. This demonstr ated no additional collateral branches. The SIR-spheres acrylic delivery box (V-vial) and delivery set were prepped in standard fashion. The labels on the tubing and needles corresponding to deputy court's designations. The dose of SIR-sphere s to be delivered was determined by taking into account the patient's body surface area, tumor burden , liver function test, tumor burden, performance status, and lung shunting. Next, multiple small aliq uots of SIR-spheres were delivered intra-arterially to the hepatic masses with close fluoroscopic mon itoring to ensure forward flow in the vessel during the administration of the microspheres. Followup angiogram demonstrated persistent forward flow. Next, the microcatheter was withdrawn into the angiographic catheter, which was then removed from the sheath, and catheter tip grasped with multiple layers of sterile gauze. The angiographic catheter, m icrocatheter, V- vial, and all the tubing and needles associated with the delivery set were placed in to a container provided by radiation safety. Hemostasis was then obtained by placement of a radial compression device. Patient tolerated the proce dure well. FINDINGS: There was successful delivery of the radioactive microspheres to the hepatic artery. The microcathete r was positioned in the hepatic artery during the delivery of the microspheres. Throughout the proced ure, antegrade flow is maintained. No reflux was demonstrated fluoroscopically. Visually, entire dose within the V-vial was delivered to the patient. No leaks or spills of the radioactive material where identified during or after the procedure. CONCLUSION: 1. Technically successful Y-90 radioembolization of the left hepatic arteries, as above. Plan: Repeat multiphase CT examination in approximately 6-8 weeks. Patient will likely require ongoin g locoregional treatments given extent of disease pending liver function. Chele Griffin MD on March 22, 2017 at 13:52 Board Certified Radiologist. This report was verified electronically.
--- NOTE | 2017-03-22 15:03 | RADRPT ---
EXAM DATE/TIME: 03/22/2017 12:08 [facility] COMPARISON: PRIOR BONE SCANS: No correlative bone scan available for comparison. INDICATIONS : Liver carcinoma. DOSE: 26.7 mCi Yttrium-90 Intraarterial MEDICAL HISTORY : Hepatitis C. Metastatic, liver. SURGICAL HISTORY : Prostatectomy. Umbilical hernia repair. ENCOUNTER: Subsequent ACUITY: >1 yr PAIN SCALE: 0/10 LOCATION: Abdomen. COMPARISON: [facility] Y-90 SCAN, March 01, 2017, 12:22. No previous studies obtainable for comparison. FINDINGS: Activity is confined to the left lobe of the liver. No significant extrahepatic activity is demonstra cintia. CONCLUSION: 1. Appropriate expected activity in the left hepatic lobe. No significant extra hepatic activity. Chele Griffin MD on March 22, 2017 at 15:01 Board Certified Radiologist. This report was verified electronically.
--- NOTE | 2017-03-22 15:55 | HHI.HP ---
HPI Service [facility] Primary Care Physician Rodney Galvan M.D. Admission Diagnosis Diagnoses: Chief Complaint: S/P hepatic artery embolization. Admission for observation. Travel History International Travel<30 Days: No Contact w/Intl Traveler <30 Da: No Traveled to Known Affected Are: No History of Present Illness 71-year-old male with a medical history significant for hepatocellular carcinoma brought into the outpatient setting for hepatic artery embolization with Y90 per oncology's recommendation. The patient previously had this procedure done on 03/01/17. He had complications of uncontrolled hypertension and intractable nausea and vomiting. Hospitalist service asked to admit him for observation to ensure that he progressed well post procedure. Patient is seen in the recovery area. He reports that he is feeling okay. No increasing abdominal pain. No nausea or vomiting. He believed that he previously had a reaction to Dilaudid. He wants to avoid this medication. Review of Systems Constitutional: DENIES: Fever, Chills Except as stated in HPI: all other systems reviewed are Neg Past Family Social History Past Medical History Hepatocellular carcinoma Prostate cancer Hypertension COPD Hypothyroidism. Past Surgical History Liver biopsy Hernia repair TURP Allergies: Coded Allergies: lisinopril (Unverified Allergy, Severe, swelling, 03/22/17) hydromorphone (Unverified Adverse Reaction, Severe, projectile vomiting, ) Family History Reviewed and is noncontributory. Social History History of heavy alcohol use. He stopped about 9 years ago. History of using tobacco 40 years but reportedly quit. Physical Exam Vital Signs Vital Signs Date Time Temp Pulse Resp B/P (MAP) Pulse Ox O2 Delivery O2 Flow Rate FiO2 03/22/17 14:20 74 18 154/86 (108) 94 03/22/17 13:50 76 18 136/84 (101) 94 03/22/17 13:20 97.8 74 18 144/86 (105) 94 03/22/17 13:00 20 148/64 (92) 96 03/22/17 12:45 80 20 158/75 (102) 98 03/22/17 12:30 72 18 148/60 (89) 94 8/23/17 12:15 78 18 152/73 (99) 94 03/22/17 12:00 67 20 154/76 (102) 94 03/22/17 08:17 93 Room Air 03/22/17 07:49 97.4 79 18 138/77 (97) 93 Physical Exam GENERAL: This is a well-nourished, well-developed patient, in no apparent distress. SKIN: No rashes, ecchymoses or lesions. Cool and dry. HEAD: Atraumatic. Normocephalic. No temporal or scalp tenderness. EYES: Pupils equal round and reactive. Extraocular motions intact. No scleral icterus. No injection or drainage. ENT: Nose without bleeding, purulent drainage or septal hematoma. Throat without erythema, tonsillar hypertrophy or exudate. Uvula midline. Airway patent. NECK: Trachea midline. No JVD or lymphadenopathy. Supple, nontender, no meningeal signs. CARDIOVASCULAR: Regular rate and rhythm without murmurs, gallops, or rubs. RESPIRATORY: Clear to auscultation. Breath sounds equal bilaterally. No wheezes , rales, or rhonchi. GASTROINTESTINAL: Abdomen soft, non-tender, nondistended. No hepato-splenomegaly , or palpable masses. No guarding. MUSCULOSKELETAL: Extremities without clubbing, cyanosis, or edema. No joint tenderness, effusion, or edema noted. No calf tenderness. Negative Homans sign bilaterally. NEUROLOGICAL: Awake and alert. Cranial nerves II through XII intact. Motor and sensory grossly within normal limits. Five out of 5 muscle strength in all muscle groups. Normal speech. Laboratory Laboratory Tests Test 03/22/17 07:55 White Blood Count 5.2 Red Blood Count 4.59 Hemoglobin 13.5 Hematocrit 40.4 Mean Corpuscular Volume 87.9 Mean Corpuscular Hemoglobin 29.3 Mean Corpuscular Hemoglobin Concent 33.3 Red Cell Distribution Width 13.6 Platelet Count 161 Mean Platelet Volume 8.4 Neutrophils (%) (Auto) 61.5 Lymphocytes (%) (Auto) 9.7 Monocytes (%) (Auto) 17.1 Eosinophils (%) (Auto) 11.4 Basophils (%) (Auto) 0.3 Neutrophils # (Auto) 3.2 Lymphocytes # (Auto) 0.5 Monocytes # (Auto) 0.9 Eosinophils # (Auto) 0.6 Basophils # (Auto) 0.0 CBC Comment DIFF FINAL Differential Comment Prothrombin Time 10.8 Prothromb Time International Ratio 1.0 Activated Partial Thromboplast Time 23.7 Blood Urea Nitrogen 13 Creatinine 1.45 Random Glucose 97 Calcium Level 9.3 Sodium Level 140 Potassium Level 4.3 Chloride Level 105 Carbon Dioxide Level 28.7 Anion Gap 6 Estimat Glomerular Filtration Rate 48 Result Diagram: 03/22/17 0755 03/22/17 0755 Imaging Last Impressions Liver Scan Nuclear Medicine 03/22/17 0825 Signed Impressions: Service Date/Time: Wednesday, March 22, 2017 12:08 - CONCLUSION: 1. Appropriate expected activity in the left hepatic lobe. No significant extra hepatic activity. Chele Griffin MD Transcatheter Procedure 03/22/17 0000 Signed Impressions: Service Date/Time: Wednesday, March 22, 2017 10:04 - CONCLUSION: 1. Technically successful Y-90 radioembolization of the left hepatic arteries, as above. Plan: Repeat multiphase CT examination in approximately 6-8 weeks. Patient will likely require ongoing locoregional treatments given extent of disease pending liver function. MD Rodriguez Do VTE Risk Assessment Caprini VTE Risk Assessment: No/Low Risk (score <= 1) VTE Pharm Contraindication: High risk for bleeding Caprini Risk Assessment Model Point Value = 1 Point Value = 2 Point Value = 3 Point Value = 5 Age 41-60 Minor surgery BMI > 25 kg/m2 Swollen legs Varicose veins or History of unexplained or recurrent spontaneous Oral contraceptives or hormone replacement Sepsis (< 1 month) Serious lung disease, including pneumonia (< 1 month) Abnormal pulmonary function Acute myocardial infarction Congestive heart failure (< 1 month) History of inflammatory bowel disease Medical patient at bed rest Age 61-74 Arthroscopic surgery Major open surgery (> 45 min) Laparoscopic surgery (> 45 min) Malignancy Confined to bed (> 72 hours) Immobilizing plaster cast Central venous access Age >= 75 History of VTE Family history of VTE Factor V Leiden Prothrombin [id number] Lupus anticoagulant Anticardiolipin antibodies Elevated serum homocysteine Heparin-induced thrombocytopenia Other congenital or acquired thrombophilia Stroke (< 1 month) Elective arthroplasty Hip, pelvis, or leg fracture Acute spinal cord injury (< 1 month) Prophylaxis Regimen Total Risk Factor Score Risk Level Prophylaxis Regimen 0-1 Low Early ambulation 2 Moderate Order ONE of the following: *Sequential Compression Device (SCD) *Heparin 5000 units SQ BID 3-4 Higher Order ONE of the following medications: *Heparin 5000 units SQ TID *Enoxaparin/Lovenox 40 mg SQ daily (WT < 150 kg, CrCl > 30 mL/min) *Enoxaparin/Lovenox 30 mg SQ daily (WT < 150 kg, CrCl > 10-29 mL/min) *Enoxaparin/Lovenox 30 mg SQ BID (WT < 150 kg, CrCl > 30 mL/min) AND/OR *Sequential Compression Device (SCD) 5 or more Highest Order ONE of the following medications: *Heparin 5000 units SQ TID (Preferred with Epidurals) *Enoxaparin/Lovenox 40 mg SQ daily (WT < 150 kg, CrCl > 30 mL/min) *Enoxaparin/Lovenox 30 mg SQ daily (WT < 150 kg, CrCl > 10-29 mL/min) *Enoxaparin/Lovenox 30 mg SQ BID (WT < 150 kg, CrCl > 30 mL/min) AND *Sequential Compression Device (SCD) Assessment and Plan Problem List: (1) HCC (hepatocellular carcinoma) ICD Code: C22.0 - Liver cell carcinoma Status: Acute Plan: Status post repeat hepatic artery embolization Y 90. Patient with previous complications including severe hypertension and intractable nausea and vomiting. Currently doing okay. Continue to monitor. Antiemetics as needed. Pain control as needed. (2) Hypertension ICD Code: I10 - Essential (primary) hypertension Plan: Currently stable. Continue home medications to include carvedilol, diltiazem Clonidine as needed. (3) Hypothyroidism ICD Code: E03.9 - Hypothyroidism, unspecified Plan: Continue home dose Synthroid. Discussed Condition With Genia Mojica MD Mar 22, 2017 15:55
[2017-03-22] MEDS ORDERED: cloNIDine HCL 0.1 MG TAB PO PRN (16:00)
[2017-03-22] MEDS: SODIUM CHLOR 0.9% 1000 ML INJ 1,000 ML IV SCH (19:49)
[2017-03-22] MEDS: SODIUM CHLORIDE 0.9% FLUSH 10 ML FLUSH IV FLUSH SCH (19:51)
[2017-03-22] MEDS ORDERED: MONTELUKAST SODIUM 10 MG TAB PO SCH (21:00)
[2017-03-22] MEDS: CARVEDILOL 6.25 MG TAB PO SCH (21:22)
[2017-03-22] MEDS: MORPHINE SULFATE 15 MG CONTROLLED RELEASE TAB PO SCH (21:24)
[2017-03-23] VITALS: BP 148/74; PULSE 70; RESP 18; TEMP 96.1; O2SAT 94
[2017-03-23] MEDS: SODIUM CHLOR 0.9% 1000 ML INJ 1,000 ML IV SCH (05:13)
[2017-03-23] MEDS ORDERED: LEVOTHYROXINE SODIUM 75 MCG TAB PO SCH (06:00)
[2017-03-23 07:18] LABS: AUTOMATED NEUTROPHIL # 7.1 TH/MM3 (1.8-7.7); BASOPHIL % 0.1 % (0.0-2.0); HEMATOCRIT 36.7 % (39.0-51.0); HEMO FLAGS DIFF FINAL; LYMPH % 3.6 % (9.0-44.0); LYMPHOCYTE # 0.3 TH/MM3 (1.0-4.8); MEAN CELL VOLUME 87.6 FL (80.0-100.0); MEAN CORPUSCULAR HEMOGLOBIN 30.1 PG (27.0-34.0); MEAN CORPUSCULAR HGB CONC 34.4 % (32.0-36.0); MONO % 4.9 % (0.0-8.0); NEUT % 91.4 % (16.0-70.0); PLATELET COUNT 139 TH/MM3 (150-450); RED BLOOD COUNT 4.19 MIL/MM3 (4.50-5.90); RED CELL DISTRIBUTION WIDTH 13.6 % (11.6-17.2); WHITE BLOOD COUNT 7.7 TH/MM3 (4.0-11.0)
[2017-03-23 07:39] LABS: ANION GAP 9 MEQ/L (5-15); AST (GOT) 57 U/L (15-37); BICARBONATE 25.3 MEQ/L (21.0-32.0); BLOOD UREA NITROGEN 14 MG/DL (7-18); CHLORIDE 107 MEQ/L (98-107); GLOMERULAR FILTRATION RATE 56 ML/MIN (>89); POTASSIUM 3.8 MEQ/L (3.5-5.1); SODIUM (NA) 141 MEQ/L (136-145)
[2017-03-23 07:40] LABS: ALT (GPT) 75 U/L (12-78)
[2017-03-23 07:42] LABS: ALKALINE PHOSPHATASE 111 U/L (45-117); TOTAL BILIRUBIN ADULT 0.6 MG/DL (0.2-1.0)
[2017-03-23 07:50] VITALS: BP 168/78; PULSE 88; RESP 20; TEMP 98.1
[2017-03-23] MEDS: CARVEDILOL 6.25 MG TAB PO SCH (08:34)
[2017-03-23] MEDS: MORPHINE SULFATE 15 MG CONTROLLED RELEASE TAB PO SCH (08:35)
[2017-03-23] MEDS: SODIUM CHLORIDE 0.9% FLUSH 10 ML FLUSH IV FLUSH SCH (08:36)
[2017-03-23] MEDS ORDERED: DILTIAZEM-CD 120 MG CAP ER PO SCH (09:00)
[2017-03-23] MEDS ORDERED: PANTOPRAZOLE SOD 40 MG DELAYED RELEASE TAB PO SCH (09:00)
[2017-03-23] MEDS ORDERED: MULTIVITAMIN TAB PO SCH (09:00)
[2017-03-23] MEDS ORDERED: CARV6.25 PO (10:29)
--- NOTE | 2017-03-23 10:32 | HHI.PR ---
Subjective Remarks Patient reports he is feeling great. Ready to go home. Pain is controlled. Objective Vitals Vital Signs Date Time Temp Pulse Resp B/P (MAP) Pulse Ox O2 Delivery O2 Flow Rate FiO2 03/23/17 07:50 98.1 88 20 168/78 (108) 03/23/17 00:00 96.1 70 18 148/74 (98) 94 03/22/17 20:00 97.0 72 18 157/71 (99) 96 03/22/17 17:00 96.9 70 16 144/81 (102) 03/22/17 14:20 74 18 154/86 (108) 94 03/22/17 13:50 76 18 136/84 (101) 94 03/22/17 13:20 97.8 74 18 144/86 (105) 94 03/22/17 13:00 20 148/64 (92) 96 03/22/17 12:45 80 20 158/75 (102) 98 03/22/17 12:30 72 18 148/60 (89) 94 03/22/17 12:15 78 18 152/73 (99) 94 03/22/17 12:00 67 20 154/76 (102) 94 I/O 03/22/17 03/22/17 03/22/17 03/23/17 03/23/17 03/23/17 07:00 15:00 23:00 07:00 15:00 23:00 Intake Total 1900 ml 240 ml Output Total 900 ml 650 ml 2650 ml Balance -900 ml 1250 ml -2410 ml Intake Oral 240 ml IV Total 1900 ml Output Urine Total 900 ml 650 ml 2650 ml Result Diagram: 03/23/17 0556 03/23/17 0556 Objective Remarks GENERAL: This is a well-nourished, well-developed patient, in no apparent distress. CARDIOVASCULAR: Normal rate and regular rhythm without murmurs, gallops, or rubs. RESPIRATORY: Good respiratory efforts. Breath sounds equal and clear to auscultation bilaterally. GASTROINTESTINAL: Abdomen soft, non-tender, non-distended. Normal active bowel sounds MUSCULOSKELETAL: Extremities without cyanosis, or edema. NEURO: Alert & Oriented x4 to person, place, time, situation. Moves all ext x4 PSYCH: Appropriate mood and affect. Procedures Hepatic artery embolization with Y 90 A/P Problem List: (1) HCC (hepatocellular carcinoma) ICD Code: C22.0 - Liver cell carcinoma Status: Acute Plan: Status post repeat hepatic artery embolization Y 90. Patient with previous complications including severe hypertension and intractable nausea and vomiting. He was observed overnight. He continued to do well. He is cleared for discharge. (2) Hypertension ICD Code: I10 - Essential (primary) hypertension Plan: Currently stable. Continue home medications to include Carvedilol, diltiazem. Renewed his prescription for carvedilol per his request. (3) Hypothyroidism ICD Code: E03.9 - Hypothyroidism, unspecified Plan: Continue home dose Synthroid. Discharge Planning Discharge home in good condition Activity: Regular as tolerated Diet: Heart healthy Follow-up: With PCP and oncology Meds: Per med rec Genia Josue MD Mar 23, 2017 10:32
[2017-03-23 11:00] VITALS: BP 163/91; PULSE 74; RESP 20; TEMP 97.5; O2SAT 96
== END 2017-03-23 14:48 | disposition home or self-care (01) ==
LOC: HROP 07:23 → HRIP 07:24 → HROP 15:41 → HOCA 15:41
PROVIDERS: ADMIT Family Medicine; ATTEND Family Medicine
DX: C22.0 Liver cell carcinoma (principal); I10 Essential (primary) hypertension; E03.9 Hypothyroidism, unspecified
CPT/HCPCS: 36247; 36248; 37243; 75726; 75774; 76001; 76937; 77300; 77370; 78201; 79445; 80048; 80053; 85025; 85610; 85730; 96360; 96361; 99152; 99153; C1769; C1887; C1894; C2616; G0378; J0690; J1100; J1644; J2250; J2405; J3010; J7030; Q9967; 77790

== ENCOUNTER 2017-04-05 13:27 | Day surgery (SDC) | payer OTHER ==
[2017-04-05 13:41] VITALS: BP 139/69; PULSE 60; RESP 20; TEMP 98; O2SAT 97
== END 2017-04-05 13:45 | disposition home or self-care (01) ==
LOC: HROP 13:27 → HRIP 13:31 → HROP 13:45
PROVIDERS: ATTEND Radiology Diagnostic Radiology
DX: R16.0 Hepatomegaly, not elsewhere classified (principal)

== ENCOUNTER 2017-05-18 14:20 | Day surgery (SDC) | payer OTHER ==
[2017-05-18 14:46] VITALS: BP 131/77; PULSE 74; RESP 18; TEMP 97.9; O2SAT 92
[2017-05-18 16:35] LABS: ALT (GPT) 111 U/L (12-78); ANION GAP 10 MEQ/L (5-15); AST (GOT) 117 U/L (15-37); BICARBONATE 22.9 MEQ/L (21.0-32.0); BLOOD UREA NITROGEN 33 MG/DL (7-18); CHLORIDE 99 MEQ/L (98-107); GLOMERULAR FILTRATION RATE 24 ML/MIN (>89); POTASSIUM 4.1 MEQ/L (3.5-5.1); SODIUM (NA) 132 MEQ/L (136-145)
[2017-05-18 16:38] LABS: ALKALINE PHOSPHATASE 165 U/L (45-117); TOTAL BILIRUBIN ADULT 2.4 MG/DL (0.2-1.0)
--- NOTE | 2017-05-18 17:06 | RADRPT ---
EXAM DATE/TIME: 05/18/2017 00:00 [facility] COMPARISON : INDICATIONS : F/U POST Y90 OBJECTIVE: Temperature: 97.9 Heart Rate: 74 Blood Pressure: 131/77 Respiratory: 18 Oximetry: 92 PNEUMONIA VACCINE: HISTORY OF PRESENT ILLNESS: 71-year-old male with history of Hepatitis C and EtOH abuse was recently diagnosed with large infiltr ative bilobar hepatocellular carcinoma status post bilobar Y90 embolization completed on 03/22/2017. R ecent followup CT examination has demonstrated partial response with a residual heterogeneous enhance ment particularly along the peripheral margins of the infiltrative mass in the right lobe. Patient re ports malaise and occasional mild right quadrant pain but is otherwise without complaints. PHYSICAL EXAMINATION: General: No acute distress Abdomen: Soft, nontender nondistended ASSESSMENT: 71-year-old with large infiltrative bilobar hepatocellular carcinoma with positive partial response f ollowing uneventful Y90 embolization. He would benefit from continued ongoing locoregional therapy pa rticularly given his intolerance of Sorafenib. PLAN: Tentative plan for MASOOD chemoembolization pending liver function assessment (CMP results) . TIME SPENT: 15 minutes assessment Chele Griffin MD on May 18, 2017 at 16:18 Board Certified Radiologist. This report was verified electronically.
== END 2017-05-18 15:53 | disposition home or self-care (01) ==
LOC: HROP 14:20 → HRIP 14:21 → HROP 15:53
PROVIDERS: ATTEND Internal Medicine
DX: C22.0 Liver cell carcinoma (principal)
CPT/HCPCS: 80053